=== PATIENT | male | born 1940 | race Caucasian/White ===

== ENCOUNTER 2016-09-26 08:05 | Outpatient (CLI) | payer OTHER ==
[2013-05-03 14:54] VITALS: BP 145/65
[2016-09-26 16:49] LABS: SERUM IRON 75 ug/dL (59-158)
== END 2016-09-26 08:06 ==
LOC: LAB 08:05
PROVIDERS: ATTEND Internal Medicine Cardiovascular Disease
DX: D64.9 Anemia, unspecified (principal)
CPT/HCPCS: 36415; 82608; 82746; 83540; 83550

== ENCOUNTER 2019-03-29 10:18 | Outpatient (CLI) | payer OTHER ==
[2013-05-03 14:54] VITALS: BP 145/65
[2019-03-29 11:25] LABS: HDL 53 mg/dL (>40); eGFR (Non-African) > 60
== END 2019-03-29 10:23 ==
LOC: LAB 10:18
PROVIDERS: ATTEND Internal Medicine Cardiovascular Disease
DX: I10 Essential (primary) hypertension (principal)
CPT/HCPCS: 36415; 80053; 80061; 84443; 85027